=== PATIENT | male | born 1960 | race Caucasian/White ===

== ENCOUNTER 2018-09-21 19:53 | Emergency (ER) | payer BC ==
[~2018-09-21] VITALS: Ht 180.3 cm; Wt 95.5 kg
[2018-09-21] MEDS ORDERED: FLEC25TA PO (20:07)
[2018-09-21] MEDS ORDERED: BYST10TA2 PO (20:07)
[2018-09-21] MEDS ORDERED: LIDOCAINE 1% MDV 20ML VIAL IM ONE (20:30)
[2018-09-21] MEDS ORDERED: ADACEL/BOOSTRIX VACCINE (DIPHTH/PERTUSS/ACELL/TETANUS)0.5ML SYR (90715) IM ONE (20:30)
[2018-09-21 21:25] VITALS: BP 165/85
== END 2018-09-21 21:23 | disposition home or self-care (01) ==
LOC: M ED 19:53
DX: S61.412A Laceration without foreign body of left hand, initial encounter (principal); W26.8XXA Contact with other sharp object(s), not elsewhere classified, initial encounter; Y92.018 Other place in single-family (private) house as the place of occurrence of the external cause; I10 Essential (primary) hypertension; I48.91 Unspecified atrial fibrillation; Z79.899 Other long term (current) drug therapy